=== PATIENT | female | born 1990 ===

== ENCOUNTER 2017-01-03 06:00 | Inpatient (IN) ==
[2017-01-03] MEDS ORDERED: Metoclopramide 10 MG/2 ML VIAL IVP PRN (06:51)
[2017-01-03] MEDS ORDERED: Famotidine 20 MG/2 ML VIAL IVP PRN (06:51)
[2017-01-03] MEDS ORDERED: Naloxone 0.4 MG/ML INJ IVP PRN (06:51)
[2017-01-03] MEDS ORDERED: Ondansetron 4 MG/2 ML VIAL IVP PRN (06:51)
[2017-01-03] MEDS ORDERED: Penicillin G Potassium 5,000,000 UNIT in D5% in Water (Mini-Bag+) 100 ML IVPB ONE (06:51)
[2017-01-03] MEDS ORDERED: Ringers Solution, Lactated 1,000 ML IVC SCH (07:00)
[2017-01-03 07:14] LABS: Basophils % 0.3 %; Eosinophils # 0.1 K/mcL (0.0-0.6); Eosinophils % 0.7 %; Hematocrit 35.7 % (35.3-44.9); Hemoglobin 11.6 g/dL (11.5-15.4); Immature Granulocytes % 0.6 % (0-4); Lymphocytes # 2.1 K/mcL (0.6-4.6); Lymphocytes % 21.2 %; Mean Corpuscular HGB Conc 32.5 g/dL (31.6-35.5); Mean Corpuscular Volume 86.2 fL (83.0-100.0); Monocytes # 0.7 K/mcL (0.0-1.3); Monocytes % 6.7 %; Platelet Count 253 K/mcL (140-400); Red Blood Count 4.14 M/mcL (3.82-4.97); Red Cell Distribution Width 15.4 % (11.5-14.5); Segmented Neutrophils % 70.5 %
[2017-01-03] MEDS ORDERED: miSOPROStol 25 MCG TABLET VG SCH (08:00)
[2017-01-03] MEDS ORDERED: miSOPROStol 25 MCG TABLET PO SCH (08:00)
--- NOTE | 2017-01-03 11:59 | OB Labor Progress Note ---
Date of Encounter: 01/03/17 Time of Encounter: 11:56 Labor Progress Note - Subjective Subjective: Pt feeling more contractions, but remains comfortable - Cervix Cervix: 3/75/-2 - Heart Tones Heart Tones: 130/moderate/+accels/-decels - [place]: 1-3 - Interventions Interventions: attempted to place mcqueen, AROM with mcqueen placement clear fluid - Plan Plan: Start pitocin if contractions pattern slows Nubain and Epidural as desired Anticipate
--- NOTE | 2017-01-03 12:08 | OB/GYN History & Physical ---
Date of Encounter: 01/03/17 Time of Encounter: 12:06 Assessment and Plan (1) 41 weeks gestation of Current visit: Yes Status: Acute (2) Post term at 41 weeks gestation Current visit: Yes Status: Acute induction of labor with Misoprostol Nubain and Epidrual as desired Continuous monitoring anticipate (3) Positive GBS test Current visit: Yes Status: Acute History of Present Illness Chief complaint: Here for induction of labor HPI: Ms. Crowder is a 26 year old female 41+2 days gestation presents for induction of labor. Late to care in preganancy, otherwise no complications. Reports good movement, denies vaginal bleeding or leaking of fluid. Labs:O+, rubella immune, GBS+, All other serologies negative Past Med Surg Social Fam HX - Past Medical History Medical history: no medical history Psychiatric history: no psych history - Past Surgical History Surgical History: no surgical history - Social History Smoking Status: Never smoker Smokeless Tobacco Status: No Alcohol use: none Drug use: none - Family History Paternal Grandmother Adopted: No Hx Family Cardiac Disorders: No Hx Family Respiratory Disorders: No Hx Family Cancer: No Hx Family GI Disorders: No Hx Family Genitourinary Disorders: No Hx Family Endocrine Disorder: Yes (diabetes) Hx Family Musculoskeletal Disorders: No Hx Family Neuromuscular Disorders: No Hx Family Neurologic Disorders: No Hx Family HEENT Disorders: No Hx Family Autoimmune Disorders: No Hx Family Reproductive Disorders: No Hx Family Psychosocial Disorders: No Hx Family Medical Disorders: No Obstetrical History - Pregnancies : 1 Para: 0 Term: 0 : 0 Ab's: 0 Livin Medications and Allergies No Known Home Drugs 01/03/17 [History] Allergies No Known Allergies Allergy (Verified 01/03/17 06:47) Exam - Constitutional Constitutional: well developed, well nourished, no acute distress, average body habitus - Neck Neck exam: full ROM - Lungs Respiratory exam: CTAB - Cardiovascular Cardiovascular exam: RRR, +S1, +S2 - Vulva Vulva: bilateral: normal - Vagina Vagina: Present: normal moisture - Cervix Dilation: 3 Effacement: 75 Station: -2 - Uterus Uterus exam: Present: normal size, normal contour - Anus/Rectum Anus/Rectum: Present: normal perianal skin Results Result Diagrams: 01/03/17 07:06 Abnormal lab results RDW 15.4 % (11.5-14.5) H 01/03/17 07:06 All other labs normal. - VTE Reasons for not Prescribing Prophylaxis: Treatment not Indicated - Low risk for VTE
[2017-01-03] MEDS: Penicillin G Potassium 2,500,000 UNIT in D5% in Water 100 ML IVPB SCH ×3 (13:00→21:20)
[2017-01-03] MEDS ORDERED: *HR* Nalbuphine 20 MG/ML AMPUL IVP PRN (13:47)
--- NOTE | 2017-01-03 17:39 | OB Labor Progress Note ---
Date of Encounter: 01/03/17 Time of Encounter: 17:39 Labor Progress Note - Cervix Cervix: 4/80/-2 - Heart Tones Heart Tones: 125/moderate/+accels/-decels Cat I - [place]: q2 - Interventions Interventions: vaginal exam, due to no cervical change will start pitocin - Plan Plan: Start pitocin per policy Epidural as desired Anticipate
[2017-01-03] MEDS ORDERED: Bupivacaine-MPF 0.25% 10 ML VIAL ONE (17:47)
[2017-01-03] MEDS ORDERED: Epidural Premix (fent/bupiv) 110 ML EP ONE (17:47)
[2017-01-03] MEDS ORDERED: *HR* FentaNYL (PF) 100 MCG/2 ML VIAL ONE (17:47)
[2017-01-03] MEDS ORDERED: Bupivacaine-MPF 0.25% 10 ML VIAL EP ONE (18:45)
[2017-01-03] MEDS ORDERED: Epidural Premix (fent/bupiv) 110 ML EP SCH (18:45)
[2017-01-03] MEDS ORDERED: *HR* FentaNYL (PF) 100 MCG/2 ML VIAL EP ONE (18:45)
--- NOTE | 2017-01-03 18:45 | Anesthesia Evaluation PreOp ---
Date of Encounter: 01/03/17 Time of Encounter: 18:43 - Past History Planned Operation: ADITHYA Cardiac History: Denies any Significant Hx Pulmonary History: Denies Any Significant HX PARACHUTE MENDER History: Denies Any Significant HX Other Medical History: Denies Any Significant HX Anesthesia History: No Prior Anesthetic Complications (never had any procedure requiring GA or NA; denies family h/o GA complications) : Yes Test: Positive Alcohol Use: none Drug use: none Medications and Allergies No Known Home Drugs 01/03/17 [History] Allergies No Known Allergies Allergy (Verified 01/03/17 06:47) - Meds/Allergy Pre-op Review Medications Reviewed: Yes Allergies Reviewed: Yes Beta Blockers on Current Med List: No Anesthesia Results - Labs 01/03/17 07:06 Anesthesia Exam 122/84, HR 74, RR 19 O2 Sat Height 1.73 m Weight 87 kg NPO (# of Hours): >8hrs Pain Scale: 8 Pain Scale Used: Numeric (1 - 10) - HEENT Pupil (Motor): Pupils equal Mallampati: II Teeth: Normal Oral Opening: Greater than 3 - PARACHUTE MENDER LOC: Oriented [place] MENDER Motor: Normal RUE, Normal LUE, Normal RLE, Normal LLE, Normal Face [employer]ACHUTE MENDER Sensory: Normal: RUE, LUE, RLE, LLE, Face - Cardiac Rhythm: Regular Murmur: None - Pulmonary Breath Sounds: bilateral Clear Respiratory Effort: Symmetrical Anesthesia Assess/Plan ASA Score: 2 Modified [place] Scale for Level of Consciousness: Cooperative, oriented, and tranquil Anesthetic Plan: Regional Autologous Blood: No Monitoring Plan: Standard Monitors Recovery Plan: Other
--- NOTE | 2017-01-03 18:51 | Anesthesia Procedures ---
Date of Encounter: 01/03/17 Time of Encounter: 18:58 Procedures: Anesthesia - Epidural/Spinal Patient ID/Chart reviewed: Yes Patient examined: Yes OB Eval: Gestational age: 41 weeks 1 day OB Eval: : 1 OB Eval: Hx Para: 0 OB Eval: Dilated at (cm): 4 OB Eval: Contractions: Non-stressed pattern Consent Obtained: Yes Site Prep: Aseptic Technique, Sterile prep and drape, Povidone-Iodine 1% Patient position: upright Local Anesthetic: Lidocaine 1% Amount of Local Anesthetic used: 3 Touhy Needle Gauge: 18 Touhy Needle Depth (cm): 6 Catheter Depth at Skin (cm): 11 Test Dose (1.5% Lido + Epi): Volume given (mls): 5 Test Dose Result: Negative Loading Dose: 0.25% Marcaine (mls): 5 Loading Dose: Fentanyl (mcg): 100 Loading Dose Administered: Thru Catheter Infusion Med: 0.125% Bupivacaine w/ 2 mcg/ml Fentanyl Infusion Rate (mls/hr): [address]: Tegaderm, Tape Interspace Used: L3-L4 Loss of Resistance (THANH): Yes Blood: No CSF: No Paresthesia: No Vitals + FHT's: Please see Amie's documentation clerk
[2017-01-03] MEDS ORDERED: Oxytocin 20 units/ LR 1000 mL 20 UNIT/1,000 ML BAG IVC SCH (21:04)
--- NOTE | 2017-01-03 22:08 | OB Labor Progress Note ---
Date of Encounter: 01/03/17 Time of Encounter: 22:06 Labor Progress Note - Subjective Subjective: Doing well, comfortable with epidural - Cervix Cervix: 5/90/-1 - Heart Tones Heart Tones: RNST - Interventions Interventions: IUPC placed. - Plan Plan: Expect , pitocin at 2 mu/min.
[2017-01-04] MEDS ORDERED: Epidural Premix (fent/bupiv) 110 ML EP ONE (01:41)
--- NOTE | 2017-01-04 04:00 | OB/GYN Procedure Note ---
Delivery - Delivery Date: 01/04/17 Provider: Saud Plata Intrapartum events: none Delivery induction: misoprostol Delivery augmentation: rupture of membranes Delivery monitor: external FHT, internal uterine Anesthesia: epidural Estimated Blood Loss: 300 - Infant (s) Infant A Delivery Date: 01/04/17 Delivery Time: 03:36
[2017-01-04] MEDS ORDERED: Measles/Mumps/Rubella Vacc 0.5 ML VIAL SQ PRN (06:12)
[2017-01-04] MEDS ORDERED: Acetaminophen 325 MG TABLET PO PRN (06:12)
[2017-01-04] MEDS ORDERED: Oxytocin 20 units/ LR 1000 mL 20 UNIT/1,000 ML BAG IVC ONE (06:12)
[2017-01-04] MEDS ORDERED: Oxytocin 20 units/ LR 1000 mL 20 UNIT/1,000 ML BAG IVC SCH (06:12)
[2017-01-04] MEDS ORDERED: Rho Immune Globulin 1,500 UNIT SYRINGE IM PRN (06:12)
[2017-01-04] MEDS: Prenatal Vit/FA 1 EACH TABLET PO SCH (09:50)
[2017-01-05 05:27] LABS: Basophils % 0.3 %; Eosinophils # 0.2 K/mcL (0.0-0.6); Hematocrit 30.7 % (35.3-44.9); Immature Granulocytes % 0.6 % (0-4); Lymphocytes # 3.1 K/mcL (0.6-4.6); Lymphocytes % 21.6 %; Mean Corpuscular HGB Conc 31.9 g/dL (31.6-35.5); Mean Corpuscular Hemoglobin 28.4 pg (28.0-33.3); Mean Platelet Volume 10.7 fL (9.4-12.4); Monocytes # 0.8 K/mcL (0.0-1.3); Monocytes % 5.7 %; Neutrophils # 10.2 K/mcL (1.6-8.9); Platelet Count 205 K/mcL (140-400); Red Blood Count 3.45 M/mcL (3.82-4.97); Red Cell Distribution Width 15.7 % (11.5-14.5); Segmented Neutrophils % 70.8 %
[2017-01-05 05:30] LABS: Hemoglobin 9.8 g/dL (11.5-15.4)
--- NOTE | 2017-01-05 08:51 | Discharge Summary ---
Date of Encounter: 01/05/17 Time of Encounter: 08:49 - Discharge Diagnosis (1) Vaginal delivery Priority: Primary Status: Acute Comments: continue routine care discharge home today follow up with Dr. Gupta in 4-6 weeks (2) Breast feeding status of mother Priority: Secondary Status: Acute Comments: support prn - Discharge Medications Home Medications: Ferrous Sulfate 325 mg PO DAILY tablet 01/05/17 [Rx] Allergies/Adverse Reactions: Allergies No Known Allergies Allergy (Verified 01/03/17 06:47) Data Procedures and tests throughout hospitalization: Laboratory Tests 01/03/17 01/05/17 07:06 03:58 WBC 9.9 14.4 H RBC 4.14 3.45 L Hgb 11.6 9.8 L D Hct 35.7 30.7 L MCV 86.2 89.0 MCH 28.0 28.4 MCHC 32.5 31.9 RDW 15.4 H 15.7 H Plt Count 253 205 MPV 10.0 10.7 Immature Gran % 0.6 0.6 Seg Neutrophils % 70.5 70.8 Lymphocytes % 21.2 21.6 Monocytes % 6.7 5.7 Eosinophils % 0.7 1.0 Basophils % 0.3 0.3 Neutrophils # 7.0 10.2 H Lymphocytes # 2.1 3.1 Monocytes # 0.7 0.8 Eosinophils # 0.1 0.2 Basophils # 0.0 0.0 Labs on day of discharge: Labs from last 24 hours 01/05/17 03:58 WBC 14.4 H RBC 3.45 L Hgb 9.8 L D Hct 30.7 L MCV 89.0 MCH 28.4 MCHC 31.9 RDW 15.7 H Plt Count 205 MPV 10.7 Immature Gran % 0.6 Seg Neutrophils % 70.8 Lymphocytes % 21.6 Monocytes % 5.7 Eosinophils % 1.0 Basophils % 0.3 Neutrophils # 10.2 H Lymphocytes # 3.1 Monocytes # 0.8 Eosinophils # 0.2 Basophils # 0.0 Date of admission: 01/03/17 06:18 Primary care physician: PCP NO Consults: 01/04/17 06:12 Consult to Juvenile Justice Specialist [CONS] Routine Comment: Vaginal delivery, consult needed Discharging clinician: Annia Young Anticipated date of discharge: 01/05/17 - Patient Status Disposition: Home, Self-Care Condition: Good Functional capacity at discharge: independent ambulation - Discharge Instructions Follow Up With: ZIGGY,PCP [Primary Care Provider] - Dequan Gupta MD [Partnered Physician] - - Diet and Activity Activity: increase activity as tolerated Diet: regular diet Hospital Course Reason for admission: active labor Delivery: Episiotomy: none Other procedures: none complications: none Discharge diagnosis: IUP at term delivered baby: male (breast feeding) Time Attestation: Total time spent providing and/or coordinating discharge services: Time Spent: Less than 30 minutes Exam - Constitutional Vitals: Temp Pulse Resp BP Pulse Ox 97.8 F 70 14 114/76 100 01/05/17 03:45 01/05/17 03:45 01/05/17 03:45 01/05/17 03:45 01/05/17 03:45 General appearance IM: A&O X 3, pleasant, answers questions appropriately - Respiratory Respiratory exam: Present: CTAB - Cardiovascular Cardiovascular exam IM: Present: RRR, +S1, +S2 - GI/Abdominal GI/Abdominal exam IM: normal bowel sounds - Uterine Tone: Firm Uterus Position: 1 Finger Below Umbilicus, Midline - Extremities Exam Extremities exam IM: Present: full ROM, normal capillary refill, normal inspection - Neurological Exam Neurological exam: alert, oriented X3, reflexes normal
[2017-01-05 10:07] VITALS: BP 109/87
[2017-01-05] MEDS: Prenatal Vit/FA 1 EACH TABLET PO SCH (10:17)
== END 2017-01-05 13:00 | disposition home or self-care (01) | DRG 775 ==
LOC: 1NENULAB 06:18 → 1NENUOBS 01-04 06:22
PROVIDERS: ADMIT Obstetrics & Gynecology; ATTEND Obstetrics & Gynecology